=== PATIENT | male | born 1980 | race Caucasian/White ===

== ENCOUNTER 2017-04-07 09:06 | Emergency (ER) | payer OTHER ==
[~2017-04-07] VITALS: Ht 182.9 cm; Wt 148.5 kg
[~2017-04-07 09:06] MED LIST: ALPRAZOLAM0.25 M2 PO; AZOR 5/40 MG1 TABLET PO; CELEXA40 MG PO; CRESTOR5 MG PO; ZITHROMAX Z-PA250 MG PO
[2017-04-07 09:32] VITALS: BP 149/90
[2017-04-07] MEDS ORDERED: PREDNISONE50 MG PO (11:43)
== END 2017-04-07 12:08 | disposition home or self-care (01) ==
LOC: EME 09:06
DX: S74.11XA Injury of femoral nerve at hip and thigh level, right leg, initial encounter (principal); X58.XXXA Exposure to other specified factors, initial encounter; E78.00 Pure hypercholesterolemia, unspecified; I10 Essential (primary) hypertension; Z88.5 Allergy status to narcotic agent
CPT/HCPCS: 99281; 99283; J7512